=== PATIENT | female | born 1975 | race Two or more races ===

== ENCOUNTER 2016-03-21 11:35 | Emergency (ER) | payer OTHER, MEDICAID ==
[~2016-03-21] VITALS: Ht 172.7 cm; Wt 72.6 kg
[2016-03-21 12:30] VITALS: BP 125/65
== END 2016-03-21 12:33 | disposition home or self-care (01) ==
LOC: ER 11:36
DX: B00.1 Herpesviral vesicular dermatitis (principal)
CPT/HCPCS: 99283; A4606; Z7610

== ENCOUNTER 2016-05-02 17:20 | Emergency (ER) | payer MEDICAID ==
[~2016-05-02] VITALS: Ht 172.7 cm; Wt 72.6 kg
[2016-05-02 17:23] VITALS: BP 124/67
== END 2016-05-02 17:42 | disposition home or self-care (01) ==
LOC: ER 17:23
DX: Z76.0 Encounter for issue of repeat prescription (principal); B00.9 Herpesviral infection, unspecified; J06.9 Acute upper respiratory infection, unspecified
CPT/HCPCS: 99283; A4606; Z7610